=== PATIENT | female | born 1990 | race Two or more races ===

== ENCOUNTER 2022-11-20 08:00 | Outpatient (CLI) | payer OTHER, SELFPAY ==
--- NOTE | ~2022-11-20 | US_ITS ---
US abdomen complete EXAMINATION: US Abdomen Complete INDICATION: Right upper quadrant pain PROCEDURE: Realtime High Resolution abdomen ultrasound. COMPARISON: No prior studies for comparison FINDINGS: There is a 5 mm gallbladder polyp. No gallstones, gallbladder wall thickening or pericholec ystic fluid. Common bile duct measures 3 mm. Liver echotexture is increased, consistent with fatty infiltration.. Pancreas within normal limits. Pancreatic tail is obscured by bowel gas. Spleen is unremarkeable. Renal echotexture is within norm al limits bilaterally without hydronephrosis, contour deforming mass or renal stone. Right kidney natalia sures 10.3 cm. Left kidney measures 10.1 cm. Visualized aspects of the aorta and IVC are within normal limits. Portal vein is patent. No sonograph ic Cortés's sign indicated by the technologist. IMPRESSION: 1: Gallbladder polyp measuring 5 mm. 2: Fatty infiltration of the liver. Reviewed, dictated and finalized at [facility]. [employer]
== END 2022-11-20 08:01 | disposition home or self-care (01) ==
LOC: ANHIMG 08:05
PROVIDERS: Visit Provider Registered Nurse
DX: R10.11 Right upper quadrant pain (principal); K82.4 Cholesterolosis of gallbladder; K76.0 Fatty (change of) liver, not elsewhere classified
CPT/HCPCS: 76700